=== PATIENT | female | born 1940 | race Caucasian/White ===

== ENCOUNTER 2022-05-26 05:36 | Day surgery (SDC) | payer MEDICARE ==
[~2022-05-26] VITALS: Ht 165.1 cm; Wt 74.0 kg
[2022-05-26] VITALS (11 sets, daily range): BP systolic 109–143; BP diastolic 40–57; PULSE 58–89; TEMP 97.4–98.1
[2022-05-26] MEDS ORDERED: SINGULAIR 110 MG/TAB PO (06:29)
[2022-05-26] MEDS ORDERED: HCTZ 25MG TAB25 MG PO (06:31)
[2022-05-26] MEDS ORDERED: LEXAPRO20 MG (06:32)
[2022-05-26] MEDS ORDERED: PROAIR HFA0.09 MG/AC IH (06:33)
[2022-05-26] MEDS ORDERED: BREZTRI AEROS10.7 GM IH (06:33)
[2022-05-26] MEDS ORDERED: MUCINEX 60600 MG/TA1 PO (06:34)
[2022-05-26] MEDS ORDERED: PROTONIX 40MG T40 MG PO (06:35)
[2022-05-26] MEDS ORDERED: ARMOUR THYROID60 MG PO (06:35)
[2022-05-26] MEDS ORDERED: AVAPRO300 M1 PO (06:36)
[2022-05-26] MEDS ORDERED: ALLEGRA 180MG180 MG PO (06:37)
--- NOTE | 2022-05-26 10:46 | NUR ---
PT TO ROOM 327 PER BED WITH REPORT FROM HERMINIA BABIN [id number]. PT IS DROWSEY AROUSES TO VERBAL. VSS, ASSESSMENTS COMPLETE. DRESSING TO RIGHT KNEE CDI WITH OCCLUSIVE MYKEL WRAP. DAUGHTER AT BED SIDE. IV TO RFA.
--- NOTE | 2022-05-26 20:00 | NUR ---
PT DOZING. NO DISTRESS. DENIES PAIN AT THIS TIME. SEE SHIFT ASSESSMENT.
[2022-05-27 00:32] VITALS: BP 144/58; PULSE 88; TEMP 98.1
[2022-05-27 04:27] VITALS: BP 150/64; PULSE 94; TEMP 98.1
[2022-05-27 06:58] LABS: HEMATOCRIT 23.9 % (37.0-47.0)
[2022-05-27 07:03] LABS: CALCIUM 8.2 mg/dL (8.4-10.2); CREATININE, serum 1.55 mg/dL (0.57-1.11); POTASSIUM 4.5 mmol/L (3.5-4.5)
[2022-05-27 08:05] VITALS: BP 145/53; PULSE 77; TEMP 98.3
--- NOTE | 2022-05-27 09:58 | NUR ---
PT UP TO BR WITH OT SHOWERING AT THIS TIME. PAIN WELL CONTROLLED WITH PO MEDS. ROSETTA FERNANDEZ FOR CHELSEY IN TO SEE PT. GAVE VERBAL TO DISCHARGE PT AFTER THERAPY.
[2022-05-27 12:00] VITALS: BP 156/53; PULSE 77; TEMP 98.4
[2022-05-27] MEDS ORDERED: ASPIRIN 81M81 MG/TA2 PO (15:08)
[2022-05-27] MEDS ORDERED: NORCO 325 MG-51 TAB PO (15:08)
--- NOTE | 2022-05-27 15:09 | NUR ---
REPORT TO MIK BABIN.
[2022-05-27] MEDS ORDERED: CEPHALEXIN500 M1 PO (15:10)
--- NOTE | 2022-05-27 16:26 | NUR ---
Cable Worker Helper met with Patient and granddaughter at bedside to conduct Care Managment Assessment and discuss discharge planning. Patient lives in [place], [place] alone. Patient is established with PCP Reba in [place] and is covered by [facility] and [place] [facility] [place] [facility]. Patient reports having Cane Walker and Wheelchaor at home and denies the use of O2 and home health services. Patient reports to be established with outpatietn PT and intends on continuing treatment. Discharge Plan: Home
--- NOTE | 2022-05-27 16:36 | NUR ---
[employer] Room Service Supervisor met with Patient and her granddaughter at bedside to conduct Care Managment Assessment and discuss discharge planning. Patient lives alone in [place], [place] and is established with PCP Tim[facility]o in her local area. Patient reports that her daughter, Ericka si james best familial point of contact. Patient verrifies incursnce as M[employer] and [employer]. Patient denies the use of O@, endorses DME whalker, wheelchair, cane at home and that she is established with outpatient PT. Francisco reports to intend on discharging home. Discharge Plan: Home
--- NOTE | 2022-05-27 16:51 | NUR ---
Pt. has orders to discharge. INT discontinued from rt. forearm. Pt. given and reviewed discharge paperwork. Pt. voices understanding. Dressing change reviewed with the pt. Pt. voices understanding. Pt. escorted out by BARBRA.
== END 2022-05-27 16:58 | disposition home or self-care (01) ==
LOC: SURG 05:36 → SDCO 05:36 → SURG 10:30 → SDCO 05-27 16:58
PROVIDERS: Physician Assistant
DX: M17.12 Unilateral primary osteoarthritis, left knee (principal); I10 Essential (primary) hypertension; K21.9 Gastro-esophageal reflux disease without esophagitis; F32.A Depression, unspecified; E03.9 Hypothyroidism, unspecified; J44.9 Chronic obstructive pulmonary disease, unspecified; E11.9 Type 2 diabetes mellitus without complications; Z86.16 Personal history of COVID-19; Z79.899 Other long term (current) drug therapy; Z79.890 Hormone replacement therapy; T78.40XA Allergy, unspecified, initial encounter; Z85.6 Personal history of leukemia; Z28.310 Unvaccinated for COVID-19
CPT/HCPCS: OP; A9284; C1713; C1776; J0690; J1100; J1580; J1885; J2270; J2405; J2704; J2795; J3010; J7030; J7120